=== PATIENT | male | born 1990 | race Caucasian/White ===

== ENCOUNTER → 2018-05-03 | Outpatient (CLI) | payer OTHER | LOC: M SMT 13:00 | DX: N50.819 Testicular pain, unspecified (principal); N43.3 Hydrocele, unspecified; N50.3 Cyst of epididymis | CPT/HCPCS: 76870 ==

== ENCOUNTER → 2018-12-14 | Outpatient (CLI) | payer OTHER ==
--- NOTE | 2018-12-14 09:01 | REP ---
MRI CERVICAL SPINE WITHOUT CONTRAST: HISTORY: Neck pain. A disc bulge is present at the C3-4 level. There is mild effacement of the thecal sac without spinal cord compression. Uncinate process hypertrophy is present on the left. This produces minimal narrowing of the left C3 neural foramen. The right C3 neural foramen is patent. A disc bulge and small central disc protrusion are present at the C4-5 level. There is mild effacement of the thecal sac without spinal cord compression. The C4 neural foramina are patent. A disc bulge and small right paracentral disc protrusion with associated osteophyte formation are present at the C5-6 level. There is moderate effacement of the thecal sac without spinal cord compression. The C5 neural foramina are patent. A disc bulge and small left paracentral and intraforaminal disc protrusion with associated osteophyte formation are present at the C6-7 level. There is minimal spinal cord compression. Uncinate process hypertrophy is present on the left. There is moderate narrowing of the left C6 neural foramen. The right C6 neural foramen is patent. There is no other disc bulge or herniation. The remaining neural foramina are patent. The spinal cord is normal in signal intensity. The C4-5 through C6-7 intervertebral discs are decreased in height consistent with disc degeneration. Normal signal intensity is present in the cervical vertebral bodies. There is loss of the normal lordotic curve. IMPRESSION: There is cervical spondylosis at the C3-4 through C6-7 levels most significant at the C6-7 level where there is minimal spinal cord compression. Electronically Signed by Michael Johnson MD 12/14/2018 09:07 A
== END ==
LOC: M RAD 07:14
PROVIDERS: ATTEND Physician Assistant
DX: M54.2 Cervicalgia (principal)